=== PATIENT | female | born 2000 | race Caucasian/White ===

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

== ENCOUNTER 2022-10-12 14:22 | Emergency (ER) | payer OTHER ==
--- NOTE | 2022-10-12 16:01 | ED Physician Documentation ---
PD HPI UPPER EXT INJURY - Stated complaint Stated Complaint: DOG BITE R HAND - Chief complaint Chief Complaint: Wound - History obtained from History obtained from: Patient - History of Present Illness Location: Right, Hand (She was bit by her dog which is a medium sized husky, and the right palmar hand. Mild bleeding. Denies numbness or weakness. Pain with gripping. Unsure if needs to sutures.) Type of injury: Other (dog bite) Where injury occurred: Home Timing - onset: Today Timing - details: Abrupt onset, Still present Improved by: Rest Worsened by: Moving, Palpating Associated symptoms: Swelling. No: Weakness, Numbness Similar symptoms before: Has not had sx before Recently seen: Not recently seen Review of Systems Skin: reports: Laceration (s) (palm) Neurologic: denies: Focal weakness, Numbness PD PAST MEDICAL HISTORY - Past Medical History Cardiovascular: None Respiratory: None Endocrine/Autoimmune: None - Past Surgical History Past Surgical History: No - Present Medications Home Medications: Ambulatory Orders Medication Instructions Recorded Confirmed Sertraline [Zoloft] 125 mg PO DAILY 02/07/21 02/07/21 Amox/Clav 875/125 [Augmentin] 1 each PO BID #10 tablet 10/12/22 - Allergies Allergies/Adverse Reactions: Allergies Allergy/AdvReac Type Severity Reaction Status Date / Time No Known Drug Allergies Allergy Verified 10/12/22 14:48 - Social History Does the pt smoke?: No Smoking Status: Never smoker Does the pt drink ETOH?: No Does the pt have substance abuse?: No - Immunizations Immunizations are current?: Yes - POLST Patient has POLST: No PD ED PE NORMAL - Vitals Vital signs reviewed: Yes - General General: Alert and oriented X 3, No acute distress, Well developed/nourished - Derm Derm: Normal color, Warm and dry - Extremities Extremities: Other (right hand with superifical abrasion and tenderness dorsally. No bony tenderness. Palmar aspect with 2 punture lacs less than 1 cm each. To fatty tissue. No FBs. No fleeding. ) - Neuro Neuro: Alert and oriented X 3, No motor deficit, No sensory deficit Results - Vitals Vitals: Vital Signs - 24 hr 10/12/22 10/12/22 14:45 16:43 Temperature 36.2 C L 36.9 C Heart Rate 66 79 Respiratory 16 18 Rate Blood Pressure 140/65 H 111/77 O2 Saturation 99 100 Oxygen O2 Source Room air PD MEDICAL DECISION MAKING - ED course Complexity details: considered differential (The wounds appear closed and often small that they do not need suturing and preferable not to suture in the setting of a dog bite to the hand.), d/w patient Departure - Departure Disposition: 01 Home, Self Care Clinical Impression: Dog bite of right palm Qualifiers: Encounter type: initial encounter Qualified Code(s): S61.451A - Open bite of right hand, initial encounter Condition: Stable Record reviewed to determine appropriate education?: Yes Instructions: ED Bite Dog Prescriptions: Amox/Clav 875/125 [Augmentin] 1 each PO BID #10 tablet Comments: The lacerations are small enough that this should heal up okay without needing closure. The preference with dog bites in the hand is to not suture up if possible as this allows for the least chance of infection. We are concerned about infection to the layers of tissue in the hand from dog bites and would typically give an antibiotic twice daily for 5 days. For the pain you can use Tylenol ibuprofen as needed for pains. Elevate and rest the hand often to reduce swelling. Keep it clean and dry for the next 3 to 4 days until it seals over. Dressing over the area is okay as well as ointment. Forms: Activity restrictions Discharge Date/Time: 10/12/22 16:44
[2022-10-12] MEDS ORDERED: IBUPROFEN 600 MG TABLET PO STA (16:25)
[2022-10-12] MEDS ORDERED: AMOX/CLAV 875 MG/125 MG TABLET PO STA (16:25)
[2022-10-12 16:44] VITALS: BP 111/77
== END 2022-10-12 16:44 | disposition home or self-care (01) ==
LOC: ED 14:22
DX: S61.451A Open bite of right hand, initial encounter (principal); W54.0XXA Bitten by dog, initial encounter
CPT/HCPCS: 99282; A9270

== ENCOUNTER 2024-06-01 13:20 | Emergency (ER) | payer OTHER, MEDICAID ==
[2024-06-01 13:54] VITALS: BP 130/84; O2SAT 96
[2024-06-01 14:21] LABS: BASOPHILS # (AUTO) 0.1 10^3/uL (0.0-0.1); BASOPHILS % (AUTO) 0.6 %; EOSINOPHILS # (AUTO) 0.1 10^3/uL (0.0-0.7); EOSINOPHILS % (AUTO) 0.5 %; HCT - HEMATOCRIT 42.6 % (37.0-47.0); HGB - HEMOGLOBIN 14.4 g/dL (12.0-16.0); LYMPHOCYTES # (AUTO) 2.1 10^3/uL (1.5-3.5); LYMPHOCYTES % (AUTO) 18.1 %; MEAN CORPUSCULAR HEMOGLOBIN 31.8 pg (27.0-31.0); MEAN CORPUSCULAR HGB CONC 33.8 g/dL (32.0-36.0); MEAN PLATELET VOLUME 11.2 fL (7.9-10.8); MONOCYTES # (AUTO) 0.9 10^3/uL (0.0-1.0); MONOCYTES % (AUTO) 8.1 %; NEUTROPHILS # (AUTO) 8.3 10^3/uL (1.5-6.6); NEUTROPHILS % (AUTO) 72.3 %; PLT - PLATELET COUNT 284 10^3/uL (130-450); RED BLOOD COUNT 4.53 10^6/uL (4.20-5.40); RED CELL DISTRIBUTION WIDTH 12.8 % (12.0-15.0); WHITE BLOOD COUNT 11.5 x10^3/uL (4.8-10.8)
[2024-06-01 14:39] LABS: ALBUMIN 4.7 g/dL (3.2-5.5); ALBUMIN/GLOBULIN RATIO 1.7 (1.0-2.2); ALKALINE PHOSPHATASE 71 IU/L (42-121); ALT ALANINE AMINOTRANSFERASE 13 IU/L (10-60); AST ASPARTATE AMINOTRANSFERASE 15 IU/L (10-42); BILIRUBIN,TOTAL 0.9 mg/dL (0.2-1.0); BUN - BLOOD UREA NITROGEN 14 mg/dL (6-20); CALCIUM 10.1 mg/dL (8.5-10.3); CARBON DIOXIDE - CO2 25 mmol/L (21-32); CHLORIDE 106 mmol/L (101-111); CK- CREATINE KINASE 66 IU/L (30-223); CREATININE 0.7 mg/dL (0.6-1.3); ETOH - ETHANOL < 10.0 mg/dL; GFR - MDRD 106 (>89); GLUCOSE 93 mg/dL (74-104); LIPASE 10 U/L (11-82); MAGNESIUM 1.9 mg/dL (1.7-2.3); POTASSIUM 3.9 mmol/L (3.5-4.5); SODIUM 137 mmol/L (135-145); TOTAL PROTEIN 7.5 g/dL (6.4-8.9)
[2024-06-01 14:41] LABS: ACETAMINOPHEN < 0.1 ug/mL; SALICYLATE < 1.5 mg/dL
--- NOTE | 2024-06-01 14:48 | ED Physician Documentation ---
PD HPI MHE - Stated complaint Stated Complaint: MHE - Chief complaint Chief Complaint: MHE - History obtained from History obtained from: Patient, Family - History of Present Illness Primary symptom: Anxiety - Additional information Additional information: Patient is a 23-year-old female brought in by her mother. She has had anxiety for several years. Her mother states that she basically cries all day every day. Cannot stop shaking. She is currently on venlafaxine, 37.5 mg twice a day. Ativan 1 mg twice a day. States that is not helping. She states that she does not know what to do. Does not see a counselor or therapist. Does not have a psychiatrist. She states that she is always considering suicide but states that she would never hurt herself. She is not actively suicidal but does have passing thoughts. Her mother brought her in today to try to find out how to help her in the community. Review of Systems Constitutional: denies: Fever, Chills GI: denies: Vomiting, Diarrhea Skin: denies: Rash Musculoskeletal: denies: Neck pain, Back pain PD PAST MEDICAL HISTORY - Past Medical History Past Medical History: Yes Cardiovascular: None Respiratory: None Endocrine/Autoimmune: None Psych: Anxiety - Past Surgical History Past Surgical History: No - Present Medications Home Medications: Ambulatory Orders Medication Instructions Recorded Confirmed Fexofenadine [Leanna] 0 mg PO DAILY 06/01/24 06/01/24 OLANZapine ODT [Zyprexa Odt] 5 mg TL BID #60 tablet 06/01/24 Sumatriptan Succinate [Imitrex] 0 mg PO DAILY PRN 06/01/24 06/01/24 Venlafaxine [Effexor] 37.5 mg PO DAILY 06/01/24 06/01/24 - Allergies Allergies/Adverse Reactions: Allergies Allergy/AdvReac Type Severity Reaction Status Date / Time No Known Drug Allergies Allergy Verified 06/01/24 13:44 - Social History Does the pt smoke?: No Smoking Status: Never smoker Does the pt drink ETOH?: No Does the pt have substance abuse?: No - Immunizations Immunizations are current?: Yes - POLST Patient has POLST: No PD ED PE NORMAL - Vitals Vital signs reviewed: Yes - General General: Alert and oriented X 3, No acute distress - HEENT HEENT: PERRL, Moist mucous membranes - Neck Neck: Supple, no meningeal sign - Cardiac Cardiac: RRR, Strong equal pulses - Respiratory Respiratory: No respiratory distress, Clear bilaterally - Abdomen Abdomen: Soft, Non tender, Non distended - Derm Derm: Warm and dry - Neuro Neuro: Alert and oriented X 3 - Psych Psych: Other (Tearful, anxious, shaking) Results - Vitals Vitals: Vital Signs - 24 hr 06/01/24 13:44 Temperature 36.7 C Heart Rate 94 Respiratory 22 Rate Blood Pressure 130/84 H O2 Saturation 96 Oxygen O2 Source Room air - Labs Labs: Laboratory Tests 06/01/24 06/01/24 06/01/24 14:15 14:15 16:48 WBC 11.5 H RBC 4.53 Hgb 14.4 Hct 42.6 MCV 94.0 MCH 31.8 H MCHC 33.8 RDW 12.8 Plt Count 284 MPV 11.2 H Neut # (Auto) 8.3 H Lymph # (Auto) 2.1 Culberson # (Auto) 0.9 Eos # (Auto) 0.1 Baso # (Auto) 0.1 Absolute Nucleated RBC 0.00 Nucleated RBC % 0.0 Sodium 137 Potassium 3.9 Chloride 106 Carbon Dioxide 25 Anion Gap 6.0 BUN 14 Creatinine 0.7 Estimated GFR (MDRD) 106 Glucose 93 Calcium 10.1 Magnesium 1.9 Total Bilirubin 0.9 AST 15 ALT 13 Alkaline Phosphatase 71 Total Creatine Kinase 66 Total Protein 7.5 Albumin 4.7 Globulin 2.8 Albumin/Globulin Ratio 1.7 Lipase 10 L TSH 1.17 Urine Color YELLOW Urine Clarity HAZY Urine pH 5.5 Ur Specific Higbee >=1.030 H Urine Protein TRACE Urine Glucose (UA) NEGATIVE Urine Ketones TRACE Urine Occult Blood LARGE H Urine Nitrite NEGATIVE Urine Bilirubin SMALL H Urine Urobilinogen 0.2 (NORMAL) Ur Leukocyte Esterase NEGATIVE Urine RBC 11-25 H Urine WBC 0-3 Ur Squamous Epith Cells NONE SEEN Urine Bacteria None Seen Ur Microscopic Review INDICATED Urine Culture Comments NOT INDICATED Urine HCG, Qual Salicylates < 1.5 Urine Opiates Screen NEGATIVE Ur Buprenorphine Scrn NEGATIVE Ur Oxycodone Screen NEGATIVE Urine Methadone Screen NEGATIVE Acetaminophen < 0.1 Ur Barbiturates Screen NEGATIVE Ur Tricyclics Screen NEGATIVE Ur Phencyclidine Scrn NEGATIVE Ur Amphetamine Screen POSITIVE H U Methamphetamines Scrn NEGATIVE U Benzodiazepines Scrn POSITIVE H Urine Cocaine Screen NEGATIVE U Cannabinoids Screen POSITIVE H Ur Drug Screen Comment CUTOFF CONC BELOW: Ethyl Alcohol < 10.0 06/01/24 16:48 WBC RBC Hgb Hct MCV MCH MCHC RDW Plt Count MPV Neut # (Auto) Lymph # (Auto) [place]bers[place] # (Auto) Eos # (Auto) Baso # (Auto) Absolute Nucleated RBC Nucleated RBC % Sodium Potassium Chloride Carbon Dioxide Anion Gap BUN Creatinine Estimated GFR (MDRD) Glucose Calcium Magnesium Total Bilirubin AST ALT Alkaline Phosphatase Total Creatine Kinase Total Protein Albumin Globulin Albumin/Globulin Ratio Lipase TSH Urine Color Urine Clarity Urine pH Ur Specific Higbee Urine Protein Urine Glucose (UA) Urine Ketones Urine Occult Blood Urine Nitrite Urine Bilirubin Urine Urobilinogen Ur Leukocyte Esterase Urine RBC Urine WBC Ur Squamous Epith Cells Urine Bacteria Ur Microscopic Review Urine Culture Comments Urine HCG, Qual NEGATIVE Salicylates Urine Opiates Screen Ur Buprenorphine Scrn Ur Oxycodone Screen Urine Methadone Screen Acetaminophen Ur Barbiturates Screen Ur Tricyclics Screen Ur Phencyclidine Scrn Ur Amphetamine Screen U Methamphetamines Scrn U Benzodiazepines Scrn Urine Cocaine Screen U Cannabinoids Screen Ur Drug Screen Comment Ethyl Alcohol PD Medical Decision Making - ED course Complexity details: reviewed results, re-evaluated patient, considered differential, d/w patient, d/w family ED course: 23-year-old female with severe anxiety. Likely underlying mood disorder besides anxiety. Possible PTSD? Apparently her sister has very similar crippling anxiety. Benzodiazepines do not seem to be helping her at home. Nor do SSRIs. She was given a dose of Zyprexa here and this actually did calm her quite well. She states that she feels much better. She is no longer tearful and is able to hold a conversation. Therefore we will trial her on Zyprexa at home, start on 5 mg by mouth twice daily, this will likely help her sleep as well. She does not want to go to inpatient hospitalization. Social work also saw the patient, recommended IOP and given resources to the patient and her mother. Not actively suicidal. No criteria for involuntary hold. Patient counseled regarding signs and symptoms for which I believe and urgent re-evaluation would be necessary. Patient with good understanding of and agreement to plan and is comfortable going home at this time This document was made in part using voice recognition software. While efforts are made to proofread this document, sound alike and grammatical errors may occur. Departure - Departure Disposition: 01 Home, Self Care Clinical Impression: Anxiety Condition: Good Instructions: ED Panic Attack Follow-Up: ATUL NUNEZ, [Primary Care Provider] - Within 1 week Prescriptions: OLANZapine ODT [Zyprexa Odt] 5 mg TL BID #60 tablet Comments: We will try you on Zyprexa. You can start with 5 mg by mouth daily or you can try 5 mg by mouth twice daily or 10 mg at night if you are having trouble sleeping. Do not take more than 10 mg a day. Please follow-up with your doctor for further care. Recommend that you follow-up with psychiatry as well. Please return if you worsen. Your prescription was sent to [facility] in [place]. If you are having any thoughts that you do not want to live, thoughts of hurting yourself, or thoughts of hurting anyone else, please call 911, the crisis line at 411, or go to your nearest emergency department. Crisis Line and is available to talk to someone [email or web address] is also available to chat with someone online if you prefer. There are also many resources on this website and apps for your phone to help with your mental health You can also text the word START to [phone] to chat with someome via text. Forms: PCP List Discharge Date/Time: 06/01/24 17:30
[2024-06-01 14:54] LABS: THYROID STIMULATING HORMONE 1.17 uIU/mL (0.34-5.60)
[2024-06-01] MEDS: OLANZapine ODT 5 MG TABLET TL ONE (15:29)
[2024-06-01 17:13] LABS: BILIRUBIN,URINE SMALL (NEGATIVE); GLUCOSE, URINE (UA) NEGATIVE (NEGATIVE); KETONES,URINE (UA) TRACE mg/dL (NEGATIVE); LEUKOCYTE ESTERASE, URINE NEGATIVE (NEGATIVE); NITRITE,URINE NEGATIVE (NEGATIVE); OCCULT BLOOD,URINE LARGE (NEGATIVE); PH,URINE 5.5 PH (5.0-7.5); PROTEIN,URINE TRACE mg/dL (NEGATIVE); UROBILINOGEN,URINE 0.2 (NORMAL) E.U./dL (NORMAL)
[2024-06-01 17:17] LABS: CLARITY,URINE HAZY (CLEAR)
[2024-06-01 17:18] LABS: HCG UR QUAL NEGATIVE
[2024-06-01 17:22] LABS: AMPHETAMINE SCREEN,URINE POSITIVE (NEGATIVE); COCAINE SCREEN URINE NEGATIVE (NEGATIVE); METHAMPHETAMINES SCREEN, URINE NEGATIVE (NEGATIVE); OPIATE SCREEN, URINE NEGATIVE (NEGATIVE); THC CANNABINOID SCREEN, URINE POSITIVE (NEGATIVE)
[2024-06-01 17:23] LABS: BARBITURATE SCREEN,UR NEGATIVE (NEGATIVE); BENZODIAZEPINES SCREEN, URINE POSITIVE (NEGATIVE); BUPRENORPHINE SCREEN, URINE NEGATIVE (NEGATIVE); METHADONE SCREEN, URINE NEGATIVE (NEGATIVE); OXYCODONE SCREEN, URINE NEGATIVE (NEGATIVE); TRICYCLIC ANTIDEPRESSANT,URINE NEGATIVE (NEGATIVE)
[2024-06-01 17:29] LABS: SQUAMOUS EPITHELIAL CELL,UR NONE SEEN (<= Few); WBC,URINE 0-3 /HPF (0-5)
[2024-06-01 17:30] LABS: BACTERIA,URINE None Seen /HPF (None Seen)
== END 2024-06-01 17:30 | disposition home or self-care (01) ==
LOC: ED 13:20
DX: F41.9 Anxiety disorder, unspecified (principal); Z79.899 Other long term (current) drug therapy
CPT/HCPCS: 36415; 80053; 80143; 80179; 80306; 81001; 81003; 81025; 82077; 82550; 83690; 83735; 84443; 85025; 87086; 99283